=== PATIENT | female | born 1975 | race African-American/Black ===

== ENCOUNTER 2018-11-23 14:55 | Emergency (ER) | payer OTHER ==
[~2018-11-23] VITALS: Ht 165.1 cm; Wt 79.9 kg
[~2018-11-23 14:55] MED LIST: ATROPINE 1 MG/10 ML SYR IVP ONE; CALCIUM CHLORIDE 10% 100 MG/ML SYR IVP ONE; CODE BLUE PARTICIPANT 1 EA MISC MC ONE; EPINEPHrine PFS 0.1 MG/ML SYR IVP ONE; SODIUM BICARBONATE 8.4% PFS 50 MEQ/50 ML SYR IVP ONE
--- NOTE | 2018-11-23 14:55 | NUR ---
Patient BIBA ACLS with CPR in progress, transferred to bed 2 and CPR continued by [facility] staff. Dr. Damon, RN, and EMT evaluating patient at bedside.
--- NOTE | 2018-11-23 14:55 | NUR ---
43 YR OLD FEMALE BIB AMBULANCE IN FULL ARREST, CPR IN PROGRESS, INTUBATED ON THE FIELD W/ REBECCA AIRWAY, CPR CONTINUED BY STAFF, DR CHAUHAN AT BEDSIDE. PER [facility] SHE WAS AT HOME WALKING UP THE STAIRS AND WITNESS ALOC BY FAMILY. IO PLACED ON RT LOWER EXTREMITY BY [facility]. ON ARRIVAL NO PALPABLE PULSE, PLACE ON MONITOR, CPR IN PROGRESS. PLEASE SEE CODE SHEET FOR FULL REPORT. HX; ABDOMINAL MASS Addendum: 11/23/18 at 1741 by MEDARO PER [facility] PT WAS ALOC 10 MIN PRIOR TO [facility] ARRIVAL AT HOME. CPR STARTED BY [facility] 30 MIN PRIOR TO ARRIVAL IN ER. PT INTUBATED ON THE FIELD WITH REBECCA AIRWAY
--- NOTE | 2018-11-23 14:55 | NUR ---
FULL ARREST [facility] AND Orestes MOORE RCP ATTENDING
--- NOTE | 2018-11-23 15:29 | NUR ---
IV STARTED BY ALVIN Powell ON RT FOOT 18G
--- NOTE | 2018-11-23 15:35 | NUR ---
PT PRONOUNCED BY DR CHAUHAN Addendum: 11/23/18 at 1855 by MEDARO 5: PT AND PRONOUNCED BY DR CHAUHAN
--- NOTE | 2018-11-23 16:00 | NUR ---
FAMILY PLACED/WALKED TO CONFERENCE ROOM WITH SECURITY
--- NOTE | 2018-11-23 16:13 | NUR ---
DR. CHAUHAN SPOKE TO FAMILY IN THE CONFERENCE ROOM.
--- NOTE | 2018-11-23 16:15 | NUR ---
CALLED INTAKE AT AUDIOLOGIST . WILL CALL BACK FOR AUDIOLOGIST CASE #.
--- NOTE | 2018-11-23 16:15 | NUR ---
TALK TO NICHOLE AT [facility] W/ CASE # [id number]. PER NICHOLE PT IS ELIGIBLE FOR ORGAN DONATION.
--- NOTE | 2018-11-23 16:23 | NUR ---
FAMILY WITH PATIENT
--- NOTE | 2018-11-23 16:40 | NUR ---
CALLED ATTENDING PHYSICIAN DR JOSHUA BARRY TO REPORT OF . Addendum: 11/23/18 at 1651 by ANNABELLA REPORT TO ÁLVARO
--- NOTE | 2018-11-23 17:22 | NUR ---
DEPUTY BENSON CALLED BACK, REPORT GIVEN REGARDING FULL ARREST AND EVENTS PRIOR TO ARRIVAL. PLACED ON HOLD PT'S MOTHER CALLED IN TO TALK TO THE DEPUTY. PT'S MOTHER HAD LEFT THE FACILITY PER ALVIN GARCIA. PER DEPUTY BENSON WILL CONTACT PATIENT'S MOTHER WITH THE CELL PHONE PROVIDED AND WILL CALL BACK THE FACILITY AT A LATER TIME.
--- NOTE | 2018-11-23 17:50 | NUR ---
Keith silva in ED - 11/23/18 at 1807 by ANNABELLA DEPUTY BENSON CALLED BACK ASKING ABOUT PT'S MOTHER IF SHE HAS RETURN TO THE FACILITY AND INFORMED THAT PT'S MOTHER HAS NOT RETURNED AND IS NOT ANSWERING HER PHONE. PER PT'S SISTER LYNDSEY HER MOTHER IS NOT ANSWERING THEIR CALL EITHER. ALSO CU[place]ardik INFORMED ABOUT [facility] RUN SHEET IS NOT AVAILABLE AT THIS TIME. REQUESTED TO BE CALLED BACK IF WE GET A HOLD OF PT'S MOTHER AND [facility] RUN SHEET IS AVAILABLE.
--- NOTE | 2018-11-23 17:50 | NUR ---
DEPUTY BENSON CALLED BACK ASKING ABOUT PT'S MOTHER IF SHE HAS RETURN TO THE FACILITY AND INFORMED THAT PT'S MOTHER HAS NOT RETURNED. PER PT'S SISTER LYNDSEY HER MOTHER IS NOT ANSWERING THEIR CALL EITHER. ALSO INFORMED ABOUT [facility] RUN SHEET IS NOT AVAILABLE AT THIS TIME. REQUESTED TO BE CALLED BACK IF WE GET A HOLD OF PT'S MOTHER AND [facility] RUN SHEET IS AVAILABLE.
--- NOTE | 2018-11-23 18:03 | NUR ---
MESSAGE LEFT TO PT'S MOTHER SERENA BENSON
--- NOTE | 2018-11-23 18:04 | NUR ---
JIL VERNON TALKED TO [facility] DISPATCHER REGARDING THE RUN SHEET. PER DISPATCHER WILL CONTACT [facility] AND WILL CALL BACK WHEN RUN SHEET IS AVAILABLE.
--- NOTE | 2018-11-23 18:10 | NUR ---
KARLOS FROM [facility] CALLED BACK AND ASKING INFORMATION OF PT'S HISTORY AND IF IT IS A CORONERS CASE. PER DNIXA WILL CALL BACK IN AN HOUR SOON ABOVE INFORMATION IS AVAILALBE SINCE PT'S MOTHER IS NOT IN THE FACILITY AND NOT ANSWERING HER PHONE.
--- NOTE | 2018-11-23 18:25 | NUR ---
TALK TO PT'S SISTER NAT AND PT'S DAUGHTER AT THE CONFERENCE ROOM. PER NAT PT'S MOTHER KNOW MORE ABOUT PT'S HISTORY AND WILL LET US KNOW WHEN SHE COMES BACK.
--- NOTE | 2018-11-23 18:47 | NUR ---
TALKED TO JOSHUA AT [facility]'S DISPATCH TO GET A HOLD OF DEPUTY BENSON TO CALL BACK THE [facility] AT .
--- NOTE | 2018-11-23 19:09 | NUR ---
REPORT GIVEN TO ALVIN MARIN
--- NOTE | 2018-11-23 19:15 | NUR ---
AAMIR BENSON CALL BACK AND SPEAK TO PT'S MOTHER AT THE CONFERENCE ROOM
--- NOTE | 2018-11-23 19:30 | NUR ---
RECIEVED CASE NUMBER FROM DEPUTY BENSON DOCUMENTED ON THE CHART, REPORT GIVEN TO ALVIN MARIN
--- NOTE | 2018-11-23 19:35 | NUR ---
RECIEVED CALL BACK FROM KARLOS AND UPDATED OF PT'S CASE
--- NOTE | 2018-11-23 19:52 | NUR ---
MANAGER EXPORT OFFICE CALLED AND STATES THEY WOULD BE HERE IN LESS THAN AN HOUR TO DELIVERY MANAGER BODY. REQUESTING A FULL COPY OF CHART.
--- NOTE | 2018-11-23 21:59 | NUR ---
PATIENT PICKED UP BY [facility] [employer] [facility]. FAMILY AWARE. TRANSPORTED AT THIS TIME. FORMS SIGNED, CHART PROVIDED.
== END 2018-11-23 15:35 | disposition expired ==
LOC: MED 14:55
DX: I46.9 Cardiac arrest, cause unspecified (principal); I10 Essential (primary) hypertension
CPT/HCPCS: 92950; 99285; J0171; J0461